=== PATIENT | female | born 1960 | race Caucasian/White ===

== ENCOUNTER 2019-01-27 17:58 | Emergency (ER) | payer BC ==
[2019-01-27 18:14] VITALS: BP 136/73
--- NOTE | 2019-01-27 19:18 | XRAY Report ---
Reason: injury Procedure Date: 01/27/2019 Accession Number: [id number] / [id number] Procedure: XR - Forearm LT CPT Code: FULL RESULT: EXAM: LEFT FOREARM RADIOGRAPHY EXAM DATE: 01/27/2019 06:44 PM. CLINICAL HISTORY: Injury. COMPARISON: ELBOW 3 VIEW LT 01/27/2019 6:33 PM. TECHNIQUE: 2 views. FINDINGS: Bones: Nondisplaced intra-articular radial head fracture. No other fracture or bone lesion seen. Joints: Normal. No effusions or subluxations in the visualized wrist or elbow joints. Soft Tissues: Normal. No soft tissue swelling. IMPRESSION: Nondisplaced intra-articular radial head fracture. RADIA
--- NOTE | 2019-01-27 19:26 | XRAY Report ---
Reason: injury Procedure Date: 01/27/2019 Accession Number: [id number] / [id number] Procedure: XR - Wrist 4 View RT CPT Code: FULL RESULT: EXAM: RIGHT WRIST RADIOGRAPHY EXAM DATE: 01/27/2019 06:44 PM. CLINICAL HISTORY: Injury. COMPARISON: None. TECHNIQUE: 3 views. FINDINGS: Bones: Normal. No fractures or bone lesions. Joints: Normal. No subluxations. Soft Tissues: Normal. No soft tissue swelling. IMPRESSION: Normal wrist radiography. RADIA
--- NOTE | 2019-01-27 19:30 | XRAY Report ---
Reason: injury Procedure Date: 01/27/2019 Accession Number: [id number] / [id number] Procedure: XR - Elbow 3 View LT CPT Code: FULL RESULT: EXAM: LEFT ELBOW RADIOGRAPHY EXAM DATE: 01/27/2019 06:44 PM. CLINICAL HISTORY: Left elbow pain after ground-level fall. COMPARISON: None. TECHNIQUE: 3 views. FINDINGS: Bones: An acute transverse fracture of the radial neck is present with no significant displacement but mild angulation best seen on the oblique view. The visualized ulna and humerus are within normal limits. Joints: A moderate joint effusion is present with displaced anterior and posterior fat pads. No dislocation. Soft Tissues: Normal. No soft tissue swelling. IMPRESSION: 1. Mildly angulated transverse radial neck fracture. 2. Moderate joint effusion. RADIA
--- NOTE | 2019-01-27 20:20 | ED Physician Documentation ---
History of Present Illness - Stated complaint Stated Complaint: GLF/LT ARM INJ - Chief complaint Chief Complaint: Ext Problem - Additonal information Additional information: Pt presents with right wrist and left elbow pain after falling while tripping over a root while hiking earlier today. She is able to move her joints with some discomfort. She denies head trauma, chest pain. No numbness or tingling. The pain is moderate in severity in the left elbow, more mild in the wrist and worse with palpation. Review of Systems Musculoskeletal: reports: Extremity pain Neurologic: denies: Head injury PD PAST MEDICAL HISTORY - Past Surgical History Other past surgical history: No hardware in affected parts of extremities - Present Medications Home Medications: Ambulatory Orders Medication Instructions Recorded Confirmed Acetaminophen 650 mg PO Q6HR #30 tablet 01/27/19 Ibuprofen 600 mg PO Q6H PRN #30 tablet 01/27/19 - Allergies Allergies/Adverse Reactions: Allergies Allergy/AdvReac Type Severity Reaction Status Date / Time Penicillins Allergy Rash Verified 01/27/19 18:14 - Living Situation Living Arrangement: reports: At home - Social History Does the pt have substance abuse?: No - Family History Family history: reports: Non contributory PD ED PE NORMAL - Vitals Vital signs reviewed: Yes - General General: Alert and oriented X 3, No acute distress - HEENT HEENT: PERRL - Cardiac Cardiac: Other (Warm and well perfused extremities) - Respiratory Respiratory: No respiratory distress - Abdomen Abdomen: Non distended - Derm Derm: Warm and dry - Extremities Extremities: Other (Bruising over the right base of the hand, no scaphoid tenderness. Tenderness over the proximal radius. Pt is able to flex, extend, rotate elbow with some discomfort. Both extremities are neurovascularly intact.) - Neuro Neuro: Alert and oriented X 3 - Psych Psych: Normal mood, Normal affect Results - Vitals Vitals: Oxygen O2 Source Room air - Rads (name of study) XR left elbow, forearm Radiology: Other (Nondisplaced radial head fracture) R wrist Radiology: Other (No acute fracture or dislocation) PD MEDICAL DECISION MAKING - ED course Complexity details: considered differential ED course: Pt presents with pain in R wrist and left elbow, she has a non-displaced radial head fracture. No signs of fracture in the R wrist and no signficiant scaphoid tenderness. She is neurovascularly intact She was placed in a L arm sling and I reviewed supportive care and recommended follow up with her PCP in the next week. I reviewed return precautions and patient was discharged home. Departure - Departure Disposition: 01 Home, Self Care Clinical Impression: Radial head fracture, closed Qualifiers: Encounter type: initial encounter Fracture alignment: nondisplaced Laterality: left Qualified Code(s): S52.125A - Nondisplaced fracture of head of left radius, initial encounter for closed fracture Condition: Good Instructions: ED Fx Radial Head Follow-Up: Your,PCP [Other] (Follow up in 1 week on radial head fracture and repeat exam) Prescriptions: Acetaminophen 650 mg PO Q6HR #30 tablet Ibuprofen 600 mg PO Q6H PRN #30 tablet PRN Reason: Pain Comments: You have a radial head fracture. Please use the sling that was provided to you and follow-up with your primary care provider in 1 week. You can flex and extend your wrist and fingers so they do not get stiff. If you develop any numbness or weakness return to the emergency department. You may take Tylenol ibuprofen for pain, and ice the arm 5 times a day for the next 48 hours. Discharge Date/Time: 01/27/19 21:04
== END 2019-01-27 21:04 | disposition home or self-care (01) ==
LOC: ED 17:58
DX: S52.125A Nondisplaced fracture of head of left radius, initial encounter for closed fracture (principal); S60.211A Contusion of right wrist, initial encounter; W01.0XXA Fall on same level from slipping, tripping and stumbling without subsequent striking against object, initial encounter; Y93.01 Activity, walking, marching and hiking
CPT/HCPCS: 99284